=== PATIENT | male | born 2000 | race Caucasian/White ===

== ENCOUNTER 2024-06-15 16:13 | Emergency (ER) | payer MEDICAID ==
[~2024-06-15] VITALS: Ht 162.6 cm; Wt 63.5 kg
[2024-06-15 16:28] VITALS: BP 118/78; PULSE 78; RESP 20; TEMP 97.3; O2SAT 97
[2024-06-15] MEDS: ONDANSETRON 4 MG ODT PO ONE (17:55)
[2024-06-15] MEDS: HYDROcodone/APAP 5/325 MG 1 TAB TAB PO ONE (17:55)
[2024-06-15] MEDS ORDERED: IBUP-2213 PO (18:22)
[2024-06-15] MEDS ORDERED: ACET500T99 PO (18:22)
[2024-06-15 18:37] VITALS: BP 126/70; PULSE 77; RESP 20; O2SAT 99
== END 2024-06-15 18:36 | disposition home or self-care (01) ==
LOC: MED 16:13
DX: S02.2XXA Fracture of nasal bones, initial encounter for closed fracture (principal); Z79.899 Other long term (current) drug therapy; Y04.8XXA Assault by other bodily force, initial encounter; Y93.66 Activity, soccer; Y92.89 Other specified places as the place of occurrence of the external cause; Y99.8 Other external cause status
CPT/HCPCS: 70160; 99283; Q0092; Q0162